=== PATIENT | female | born 1955 ===

== ENCOUNTER 2022-11-05 10:35 | Inpatient (IN) | payer OTHER ==
[~2022-11-05] VITALS: Ht 157.5 cm; Wt 52.2 kg
[2022-11-05] MEDS ORDERED: METFORMIN HCL500 M3 PO (10:45)
[2022-11-05] MEDS ORDERED: D3 + K2 DOTS 11 EACH PO (10:46)
[2022-11-05] MEDS ORDERED: CALCIUM500 M1 PO (10:46)
[2022-11-14] MEDS ORDERED: ACETAMINOPHEN500 M2 PO (12:27)
[2022-11-14] MEDS ORDERED: NEURONTIN300 MG PO (12:27)
== END 2022-11-14 15:10 | disposition home or self-care (01) | DRG 331 ==
LOC: EDSTATUS 10:45 → O/R 11-11 05:20 → SURG 11-11 05:20 → SURH 11-11 07:00 → EDSTATUS 11-11 10:45 → SURH 11-11 10:45 → CIR.AMB 11-11 10:45 → SURG 11-11 10:45
PROVIDERS: ADMIT Surgery; ATTEND Surgery
PROC: 07BB4ZZ Excision of Mesenteric Lymphatic, Percutaneous Endoscopic Approach (ICD-10-PCS; 2022-11-11)
PROC: 0DBU4ZZ Excision of Omentum, Percutaneous Endoscopic Approach (ICD-10-PCS; 2022-11-11)
PROC: 0DTF4ZZ Resection of Right Large Intestine, Percutaneous Endoscopic Approach (ICD-10-PCS; principal; 2022-11-11 07:00)
DX: D12.3 Benign neoplasm of transverse colon (principal); Z20.822 Contact with and (suspected) exposure to COVID-19